=== PATIENT | male | born 1975 | race Caucasian/White ===

== ENCOUNTER 2017-01-06 16:01 | Observation (INO) | payer OTHER ==
[2017-01-06 11:58] LABS: BASOPHILS 0.2 %; BASOPHILS ABSOLUTE 0.02 10/3/uL (0.0-0.16); EOSINOPHILS 0.3 %; EOSINOPHILS ABSOLUTE 0.03 10/3/uL (0.0-0.53); ER CBC TAT 0 Hrs 03 Mins; HEMATOCRIT 38.2 % (40.0-51.0); HEMOGLOBIN 12.5 g/dL (13.6-17.8); IMMATURE GRANULOCYTES 0.1 %; IMMATURE GRANULOCYTES ABSOLUTE 0.01 10/3/uL (0.0-0.11); LYMPHOCYTES 20.3 %; LYMPHOCYTES ABSOLUTE 1.82 10/3/uL (0.67-4.30); MEAN CORPUS HGB CONC 32.7 g/dL (32.0-36.0); MEAN CORPUSCULAR HEMOGLOB 27.1 pg (26.0-34.0); MEAN CORPUSCULAR VOLUME 82.7 fL (80-100); MEAN PLATELET VOLUME 9.3 fL (9.2-13.0); MONOCYTES 4.9 %; MONOCYTES ABSOLUTE 0.44 10/3/uL (0.21-1.20); NEUTROPHILS 74.2 %; NEUTROPHILS ABSOLUTE 6.64 10/3/uL (2.02-8.40); PLATELET COUNT 280 10/3/uL (150-400); RBC DISTRIBUTION WIDTH 16.6 % (12.0-16.0); RED CELL COUNT 4.62 10/6/uL (4.7-6.1)
[2017-01-06 11:59] LABS: MANUAL DIFF NO %
[2017-01-06 12:06] LABS: PARTIAL THROMBO TIME 26.3 SEC (22.5-37.2); PROTIME (NOT ORD) 12.6 SEC (12.0-14.5)
[2017-01-06 12:14] LABS: BUN (BLOOD UREA NITROGEN) 4 MG/DL (6-23); CHLORIDE, SERUM 112 MMOL/L (96-112); CO2 (CARBON DIOXIDE) 29 MMOL/L (24-34); CREATININE 0.81 MG/DL (0.70-1.30); GFR AFRICAN AMERICAN 128 ML/MIN (>=60); GFR NON AFRICAN AMERICAN 110 ML/MIN (>=60); SODIUM, SERUM 144 MMOL/L (135-148)
[2017-01-06 12:15] LABS: CALCIUM, SERUM 9.3 MG/DL (8.5-10.4); CHEST PAIN PROFILE TAT 0 Hrs 20 Mins; GLUCOSE, SERUM 122 MG/DL (60-99); POTASSIUM, SERUM 4.5 MMOL/L (3.5-5.3); TROPONIN I 0.05 NG/ML (<0.05)
[2017-01-06 14:35] LABS: ASCORBIC ACID (UR NOT ORDER) NEG (NEG); BILIRUBIN, URINE NEGATIVE (NEG); ER URINALYSIS TAT 0 Hrs 12 Mins; KETONE, URINE NEGATIVE (NEG); LEUKOCYTE ESTERASE(NOT OR NEG (NEG); NITRITE (URINE) NEG (NEG); WBC (NOT ORDERED) (RFLEX) < 1 (0-5)
[2017-01-06 14:54] LABS: AMPHETAMINES (NOT ORD) NEG (NEG); BARBITURATES (NOT ORDERED NEG (NEG); BENZODIAZEPINES (NOT ORD) NEG (NEG); CANNABINOIDS (THC) NEG (NEG); COCAINE (NOT ORDERED) NEG (NEG); OPIATES NEG (NEG); PHENCYCLIDINE(PCP) NEG (NEG); TRICYCLICS NEG (NEG)
[2017-01-06 15:01] LABS: SALICYLATE 18.9 MG/DL (-)
[2017-01-06 15:05] LABS: ACETAMINOPHEN LEVEL (TYLENOL) < 2.0 MCG/ML (10.0-20.0); ALCOHOL < 10 MG/DL (0)
[~2017-01-06 16:01] MED LIST: BONTRIL PDM35 MG OR; CELEXA20 PO; CENTRUM PO; COREG12 PO; DEPO-TESTOS200 MG/ML IM; EFFEXOR XR150 MG PO; GOODY'S EX PO; GOODY'S EX-STR1 EAC1 PO; LYRICA150 MG PO; NUGENIX PO; OXYCON40 PO; OXYCONTIN15 MG PO; PRAV10 PO; PRAVASTATIN; PRILO PO; PRILOSEC OTC20 MG PO; PRIN10 PO; PRIN20 PO; REST15 PO; RISP1 PO; RISP2 PO; ROXICODONE30 MG PO; TEMAZEPAM; VISINE TEARS15 ML OPH; XANAX1 MG PO; [UNRECOGNIZED DRUG - OTHER]
== END 2017-01-06 22:00 | disposition left against medical advice (07) ==
LOC: ER 16:01 → CDU1 17:21 → CDU2 17:39
PROVIDERS: Emergency Medicine; Nurse Practitioner Family
DX: R07.9 Chest pain, unspecified (principal); R06.02 Shortness of breath
CPT/HCPCS: 71020; 71275; 80048; 80305; 80307; 81001; 83735; 83880; 84484; 85025; 85610; 85730; 87070; 87880; 93005; 99285; A9270-GY; G0378; Q9967